=== PATIENT | female | born 1985 | race Caucasian/White ===

== ENCOUNTER 2020-01-24 10:41 | Outpatient (CLI) | payer OTHER | END 2020-01-24 10:46 | disposition home or self-care (01) | LOC: RX STUDY 10:41 | PROVIDERS: ATTEND Obstetrics & Gynecology Obstetrics | DX: D25.0 Submucous leiomyoma of uterus (principal) ==

== ENCOUNTER 2021-03-13 08:48 | Outpatient (CLI) | payer OTHER | END 2021-03-13 09:51 | disposition home or self-care (01) | LOC: PRENATAL 08:48 | PROVIDERS: ATTEND Obstetrics & Gynecology Maternal & Fetal Medicine | DX: Z36.89 Encounter for other specified antenatal screening (principal); O36.80X1 Pregnancy with inconclusive fetal viability, fetus 1; O09.511 Supervision of elderly primigravida, first trimester; Z3A.12 12 weeks gestation of pregnancy ==

== ENCOUNTER 2021-04-01 19:05 | Emergency (ER) | payer OTHER ==
[~2021-04-01] VITALS: Ht 157.5 cm; Wt 74.4 kg
[2021-04-01] MEDS ORDERED: PRENA1 CHEW TA1.4 MG (20:30)
[2021-04-01] MEDS ORDERED: FOLIC ACID1 MG (20:30)
== END 2021-04-02 00:35 | disposition home or self-care (01) ==
LOC: ER 19:05
DX: G44.89 Other headache syndrome (principal); Z33.1 Pregnant state, incidental; Z20.822 Contact with and (suspected) exposure to COVID-19

== ENCOUNTER 2021-04-29 13:28 | Emergency (ER) | payer OTHER ==
[~2021-04-29] VITALS: Ht 157.5 cm; Wt 75.3 kg
[~2021-04-29 13:28] MED LIST: FOLIC ACID1 MG; PRENA1 CHEW TA1.4 MG
== END 2021-04-29 18:54 | disposition home or self-care (01) ==
LOC: ER 13:28
DX: O26.892 Other specified pregnancy related conditions, second trimester (principal); Z3A.13 13 weeks gestation of pregnancy; R10.2 Pelvic and perineal pain

== ENCOUNTER 2021-05-13 07:53 | Outpatient (CLI) | payer OTHER | END 2021-05-13 09:10 | disposition home or self-care (01) | LOC: PRENATAL 07:53 | PROVIDERS: ATTEND Obstetrics & Gynecology Maternal & Fetal Medicine | DX: O35.0XX0 Maternal care for (suspected) central nervous system malformation in fetus, not applicable or unspecified (principal); O35.3XX0 Maternal care for (suspected) damage to fetus from viral disease in mother, not applicable or unspecified; O09.519 Supervision of elderly primigravida, unspecified trimester ==

== ENCOUNTER 2021-09-12 21:15 | Outpatient (CLI) | payer OTHER | END 2021-09-14 10:36 | disposition home or self-care (01) | LOC: OBS/DEL 21:15 | PROVIDERS: ATTEND Obstetrics & Gynecology | DX: O47.1 False labor at or after 37 completed weeks of gestation (principal); Z3A.38 38 weeks gestation of pregnancy ==

== ENCOUNTER 2021-09-22 05:34 | Inpatient (IN) | payer OTHER ==
[~2021-09-22] VITALS: Ht 157.5 cm; Wt 3.2 kg
== END 2021-09-26 17:15 | disposition home or self-care (01) | DRG 787 ==
LOC: OB/GYN 05:34 → LDR 05:34 → O/R 09-23 18:45 → OB/GYN 09-23 21:07
PROVIDERS: ADMIT Obstetrics & Gynecology; ATTEND Obstetrics & Gynecology
PROC: 3E0P7VZ Introduction of Hormone into Female Reproductive, Via Natural or Artificial Opening (ICD-10-PCS; 2021-09-22)
PROC: 3E033VJ Introduction of Other Hormone into Peripheral Vein, Percutaneous Approach (ICD-10-PCS; 2021-09-22)
PROC: 4A1HXFZ Monitoring of Products of Conception, Cardiac Rhythm, External Approach (ICD-10-PCS; 2021-09-23)
PROC: 10D00Z1 Extraction of Products of Conception, Low, Open Approach (ICD-10-PCS; principal; 2021-09-23 15:00)
DX: O64.0XX0 Obstructed labor due to incomplete rotation of fetal head, not applicable or unspecified (principal); O63.9 Long labor, unspecified; O61.0 Failed medical induction of labor; Z37.0 Single live birth; Z3A.39 39 weeks gestation of pregnancy